=== PATIENT | male | born 1940 | race Caucasian/White ===

== ENCOUNTER → 2020-02-17 08:43 | Outpatient (BNVA) | payer MEDICARE, BC, SELFPAY | PROVIDERS: Family Provider Urology; PCP Family Medicine; Visit Provider Urology | DX: R97.20 Elevated prostate specific antigen [PSA] (principal); N35.912 Unspecified bulbous urethral stricture, male; N40.1 Benign prostatic hyperplasia with lower urinary tract symptoms; N13.8 Other obstructive and reflux uropathy; R31.0 Gross hematuria | CPT/HCPCS: 80053; 81001; 84153; 87077; 87086; 87186 ==

== ENCOUNTER → 2021-04-18 13:48 | Outpatient (BNVA) | payer MEDICARE, BC, SELFPAY | PROVIDERS: Family Provider Urology; PCP Family Medicine; Visit Provider Urology | DX: N13.8 Other obstructive and reflux uropathy (principal); N40.1 Benign prostatic hyperplasia with lower urinary tract symptoms; R31.0 Gross hematuria | CPT/HCPCS: 81003; 87077; 87086; 87184 ==

== ENCOUNTER → 2022-04-17 13:33 | Outpatient (BNVA) | payer MEDICARE, BC, SELFPAY | PROVIDERS: Family Provider Urology; PCP Family Medicine; Visit Provider Urology | DX: N35.912 Unspecified bulbous urethral stricture, male (principal); N40.1 Benign prostatic hyperplasia with lower urinary tract symptoms; N13.8 Other obstructive and reflux uropathy | CPT/HCPCS: 51741; 81003; 99213 ==

== ENCOUNTER → 2023-01-31 10:17 | Outpatient (BNVA) | payer MEDICARE, BC, SELFPAY | PROVIDERS: Family Provider Urology; PCP Family Medicine; Visit Provider Nurse Practitioner Family | DX: N40.1 Benign prostatic hyperplasia with lower urinary tract symptoms (principal); N13.8 Other obstructive and reflux uropathy | CPT/HCPCS: 81000; 87077; 87086; 87184 ==

== ENCOUNTER → 2023-02-14 13:07 | Outpatient (BNVA) | payer MEDICARE, BC, SELFPAY | PROVIDERS: Family Provider Urology; PCP Family Medicine; Visit Provider Nurse Practitioner Family | DX: N13.8 Other obstructive and reflux uropathy (principal); N39.0 Urinary tract infection, site not specified; N40.1 Benign prostatic hyperplasia with lower urinary tract symptoms; R13.10 Dysphagia, unspecified; Z13.29 Encounter for screening for other suspected endocrine disorder; Z13.6 Encounter for screening for cardiovascular disorders | CPT/HCPCS: 80053; 80061; 81000; 84443; 85025 ==

== ENCOUNTER 2023-04-08 09:09 | Outpatient (CLI) | payer MEDICARE, BC, SELFPAY ==
--- NOTE | 2023-04-08 09:21 | FL_ITS ---
WS: [id number] Exam: FL barium swallow [id number] Date/Time of Exam: 04/08/2023 9:24 AM Reason For Exam: DYSPHAGIA, OROPHARYNGEAL PHASE Fluoroscopy time: 1min [id number] minutes # of spot films: The patient experienced altered swallowing function at the level of the oropharynx with significant a spiration of the barium into the trachea and right mainstem bronchus. There was tertiary spasm of bot h the proximal and distal esophagus. No obvious esophageal stricture identified. There is some rightw deanne displacement of the proximal esophagus. This might be seen with the goiter or a mass in the super ior mediastinum. Extensive spondylosis of the cervical and thoracic spine. There may be changes of an kylosing spondylitis present. Recommendations: 1. Modified barium swallow. 2. Contrast CT scan of the chest might also be considered for more detailed evaluation. FL/FL barium swallow [id number] IMPRESSION: 1. Significant aspiration of barium into the trachea and right mainstem bronchu s. 2. Rightward displacement of the cervical esophagus which might be seen with a mediastinal mass or goiter. 3. Significant presbyesophagus involving almost the complete esophagus. 4. 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.
== END 2023-04-08 09:10 | disposition home or self-care (01) ==
PROVIDERS: Family Provider Urology; PCP Family Medicine; Visit Provider Otolaryngology
DX: R13.12 Dysphagia, oropharyngeal phase (principal); K22.89 Other specified disease of esophagus; M47.813 Spondylosis without myelopathy or radiculopathy, cervicothoracic region
CPT/HCPCS: 74220

== ENCOUNTER 2023-04-11 15:59 | Outpatient (CLI) | payer MEDICARE, BC, SELFPAY ==
--- NOTE | 2023-04-11 | CT_ITS ---
WS: [id number] CT NECK WITH CONTRAST HISTORY: DYSPHAGIA TECHNIQUE: Contiguous 5 mm axial images are performed through the neck with intravenous contrast. Sag ittal and coronal reformats are also submitted. All CT scans at [facility] use at least one o f these dose optimization techniques: automated exposure control; mA and/or kV adjustment per patient size (includes targeted exams where dose is matched to clinical indication); or iterative reconstruc tion. CONTRAST: CONTRAST: Omnipaque 350; 100 mL IV. DLP: 863.10 mGy.cm COMPARISON: No similar studies. Nasopharynx, oropharynx, hypopharynx and larynx are unremarkable. No soft tissue masses or abnormal e nhancement. There is mild deviation of the cervical esophagus to the RIGHT at the cervical thoracic junction. The re is a large osteophyte extending anteriorly and to the LEFT from the vertebral body. This hypertrop hic osteophyte is probably causing the esophageal deviation to the RIGHT. There are several large spo ndylytic osteophytes throughout the cervical and thoracic spine. This large osteophyte at the C7 leve l measures 2.2 x 2.4 cm. Torus tubarius and fossa of Rosenmuller and parapharyngeal fat are normal. No significant lymphadenopathy is identified. Thyroid gland and salivary glands are normally enhancing with no masses. Large anterior osteophytes. Some of these are bridging between vertebral bodies. Hypertrophic osteoph ytes extend anteriorly and also to the RIGHT and LEFT of midline. Visualized portions of the skull base demonstrate no abnormalities. Orbits and globes are within norm al limits. No soft tissue masses. Visualized paranasal sinuses and mastoid air cells are normal. Lung apices are clear. CT/CT neck w con* [id number] IMPRESSION: 1. No neck mass or adenopathy. 2. Deviation of the cervical esophagus to the RIGHT of midline is noted at the cervical thoracic inlet. This deviation appears to be caused by very large hyp ertrophic osteophytes from the vertebral bodies. 3. There are extensive hypertrophic vertebral body osteophytes extending anter ior and from the LEFT and RIGHT vertebral bodies.
--- NOTE | 2023-04-11 | CT_ITS ---
WS: [id number] CT chest w con* [id number] HISTORY: Dysphagia, DISORDERS OF THE MEDIASTINUM TECHNIQUE: Axial imaging performed through the thorax. Coronal and sagittal reformats are submitted. All CT scans at [facility] use at least one of these dose optimization techniques: automated exposure control; mA and/or kV adjustment per patient size (includes targeted exams where dose is mat ched to clinical indication); or iterative reconstruction. CONTRAST: Omnipaque 350; 100 mL IV. DLP: 863.10 mGy.cm COMPARISON: None available. Lungs and central airway: Mild pulmonary hyperexpansion. No mass or nodule. No pneumonia. Mild depend ent changes at the lung bases. Pleura: Normal. No pleural effusion. Heart and pericardium: Heart is top normal size. No pericardial effusion. Mediastinum and wilmer: No mediastinum or hilar adenopathy. No significant deviation of the esophagus n oted by CT. No esophageal mass. There are small benign-appearing lymph nodes. Vessels: Moderate atherosclerosis aorta. No aneurysm. Pulmonary artery size is equal to the aorta. Sc attered coronary artery calcifications. Chest wall and lower neck: No soft tissue masses. Upper abdomen: Small hiatal hernia. Visualized liver is negative. High density contrast in the colon from a prior barium swallow exam. Osseous structures: Spondylitic changes throughout the thoracic spine with anterior bridging osteophy christel. CT/CT chest w con* [id number] IMPRESSION: 1. No mediastinal mass or adenopathy. No significant deviation of the esophagu s noted on the CT exam. 2. Mild atherosclerosis aorta. 3. Mild dependent changes in the lungs. No mass or nodule.
[2023-04-11] MEDS: iohexol 350 mg/mL 500 mL Btl (per mL) IV (16:29)
== END 2023-04-11 16:00 | disposition home or self-care (01) ==
PROVIDERS: PCP Family Medicine; Visit Provider Otolaryngology
DX: J98.59 Other diseases of mediastinum, not elsewhere classified (principal); I70.0 Atherosclerosis of aorta
CPT/HCPCS: 70491; 71260; Q9967

== ENCOUNTER 2023-04-17 10:13 | Outpatient (CLI) | payer MEDICARE, BC, SELFPAY ==
--- NOTE | 2023-04-17 10:27 | FL_ITS ---
WS: [id number] FL barium swallow modifd [id number] REASON FOR EXAM: Oropharyngeal dysphagia FLUOROSCOPY TIME: 2min [id number] # OF SPOT FILMS: None FINDINGS: The examination was supervised by the speech therapy department. Patient was examined in the lateral upright sitting position. The swallowing of barium of multiple consistencies was monitored with fluoroscopy and video recorded. Detailed analysis and report of the swallowing will be rendered by the speech therapy department. FL/FL barium swallow modifd [id number] IMPRESSION: Modified barium swallow as above.
== END 2023-04-17 10:14 | disposition home or self-care (01) ==
LOC: RAD 10:17
PROVIDERS: PCP Family Medicine; Visit Provider Otolaryngology
DX: R13.12 Dysphagia, oropharyngeal phase (principal)
CPT/HCPCS: 74230; 92611

== ENCOUNTER → 2024-05-07 10:54 | Outpatient (BNVA) | payer MEDICARE, BC, SELFPAY | PROVIDERS: PCP Family Medicine; Visit Provider Nurse Practitioner Family | DX: R39.9 Unspecified symptoms and signs involving the genitourinary system (principal) | CPT/HCPCS: 81000 ==